=== PATIENT | male | born 1960 | race Caucasian/White ===

== ENCOUNTER 2018-04-02 14:13 | Emergency (ER) | payer MEDICAID ==
[2018-04-02] MEDS ORDERED: FENTANYL PF 100MCG/2ML VIAL IVP ONE ×4 (14:16→14:39)
[2018-04-02] MEDS ORDERED: 0.9 % SODIUM CHLORIDE 1,000 ML BAG IV ONE (14:16)
--- NOTE | 2018-04-02 14:23 | Emergency Department Record ---
History of Present Illness - General Chief Complaint: Fall Injury Stated Complaint: FELL OF LADDER Time Seen by Provider: 04/02/18 14:14 Source: Patient Mode of Arrival: Ambulatory Limitations: No limitations - History of Present Illness Initial Comments: 58 yo male presents after a 8-10 foot fall. He was cleaning his gutters up on a ladder. He injured is chest, side, left arm. He denies a head injury. No current blood thinners. He drove himself to the ED. Ne denies any LOC. MD Complaint: Fall -: Minutes(s) Fall From: Standing, Other (Ladder) When Fall Occurred: Just prior to arrival Fall Witnessed: No Place Fall Occurred: Home Loss of Consciousness: None Prolonged Down Time?: No Symptoms Prior to Fall: None Location: Chest, Back, Abdomen Location - Extremities: Left: Forearm Severity: Severe Quality: Aching Associated Symptoms: Denies - Reeders Coma Scale Eye Response: (4) Open spontaneously Motor Response: (6) Obeys commands Verbal Response: (5) Oriented Dave Total: 15 Review of Systems Constitutional: Denies: Chills, Fever, Malaise, Weakness Eyes: Denies: Eye discharge ENT: Denies: Congestion, Throat pain Respiratory: Denies: Cough Cardiovascular: Denies: Chest pain, Palpitations, Syncope Endocrine: Denies: Fatigue Gastrointestinal: Denies: Abdominal pain, Diarrhea, Nausea, Vomiting Genitourinary: Denies: Dysuria, Frequency, Hematuria Musculoskeletal: Reports: Arthralgia, Back pain, Joint swelling, Myalgia Skin: Denies: Bruising, Change in color, Rash Neurological: Denies: Confusion, Headache, Weakness Psychiatric: Denies: Anxiety Hematological/Lymphatic: Denies: Blood Clots, Easy bleeding, Easy bruising Physical Exam - General General Appearance: Alert, Oriented x3, Cooperative, Anxious Limitations: No limitations - Head Head exam: Atraumatic, Normocephalic, Normal inspection - Eye Eye exam: Normal appearance, PERRL. negative: Conjunctival injection - ENT ENT exam: Normal exam, Mucous membranes moist Ear exam: Normal external inspection Nasal Exam: Normal inspection Mouth exam: Normal external inspection - Neck Neck exam: Normal inspection - Respiratory Respiratory exam: Normal lung sounds bilaterally, Chest wall tenderness (ribs on left mid to lower). negative: Respiratory distress - Cardiovascular Cardiovascular Exam: Regular rate, Normal rhythm, Normal heart sounds Peripheral Pulses: 2+: Radial (L) - GI/Abdominal GI/Abdominal exam: Soft, Tenderness (left side of the abdomen). negative: Distended, Guarding - Rectal Rectal exam: Deferred - exam: Deferred - Extremities Extremities exam: Joint swelling, Normal capillary refill, Tenderness, Other ( superficial abrasion of the left forearm). negative: Normal inspection Image of Full Body: 1 - abrassion, tenderness, swelling 2 - tenderness 3 - tenderness to mid lateral ribs 4 - swollen tender anterior, medial knee - Back Back exam: Reports: CVA tenderness (L), Paraspinal tenderness, Tenderness - Neurological Neurological exam: Abnormal gait (limping), Alert, Oriented X3. negative: Motor sensory deficit - Psychiatric Psychiatric exam: Anxious - Skin Skin exam: Dry, Intact, Normal color, Warm Type of lesion: abrasion Course - Reevaluation(s) Reevaluation #1: The labs were reviewed No acute abnormalities. The forearm XR was reviewed. Distal 1/3 displaced transverse ulnar fracture, impaction fracture distal radius, triquetral bone possible fracture. Head CT Scan: Ethmoid sinus disease Cervical CT Scan: Degenerative changes C4-5, no fracture Chest CT Scan: Fibrotic changes, no fracture seen Abdomen/PElvici CT: Inflammatory changes of the left inguinal region 04/02/18 15:25 [facility] Tra[facility] called given his injuries. 04/02/18 15:59 04/02/18 16:31 No call back from Trauma at this time Dr Jiang of the ED accepts the patient for transfer ED to ED 04/02/18 16:31 04/02/18 16:47 Right Knee XR read STS otherwise negative EMS is ED for transfer. Greatly improved at transfer. Medical Decision Making - Lab Data Result diagrams: 04/02/18 14:20 04/02/18 14:20 Disposition Disposition: Transfer Clinical Impression: Fall, Contusion, chest wall, Contusion of knee, right, Pelvic contusion Ulnar shaft fracture Qualifiers: Encounter type: initial encounter Disposition: Acute Care Hospital Transfer Transfer To: [facility] Reason For Transfer: Trauma, forearm fracture Accepting Physician: Yaney Time Discussed w/Accepting Physician: 15:42 Condition: (2) Stable Forms: Patient Portal Access Time of Disposition: 15:32 Quality - Quality Measures Quality Measures: N/A - Blood Pressure Screening Does Patient Have Any of the Following: No Blood Pressure Classification: Hypertensive Reading Systolic Measurement: 142 Diastolic Measurement: 125 Screening for High Blood Pressure: < Pre-Hypertensive BP, F/U Documented > [ [id number]] Pre-Hypertensive Follow-up Interventions: Referral to alternative/primary care provider.
[2018-04-02 14:27] LABS: HEMATOCRIT 48.6 % (42.0-52.0); HEMOGLOBIN 16.4 gm/dl (14.0-18.0); MEAN CELL VOLUME 90.3 fl (81-97); MEAN CORPUSCULAR HEMOGLOBIN 30.5 pg (27-33); MEAN CORPUSCULAR HGB CONC 33.7 g/dl (32-36); MEAN PLATELET VOLUME 9.4 fl (7.4-10.4); PLATELET COUNT 365 K/uL (130-400); RED BLOOD COUNT 5.38 M/uL (4.40-5.70); RED CELL DISTRIBUTION WIDTH 14.4 % (11.5-14.5); WHITE BLOOD COUNT W/O DIFF 13.8 K/uL (4.2-12.2)
[2018-04-02 14:41] LABS: PROTHROMBIN TIME (PATIENT) 10.2 SECONDS (9.5-12.1)
[2018-04-02 14:42] LABS: BLOOD UREA NITROGEN 13 mg/dL (6-20); CREATININE 1.1 mg/dL (0.7-1.2); EST GLOMERULAR FILTRATION RATE > 60 mL/min; TOTAL PROTEIN 6.9 g/dL (6.6-8.7)
[2018-04-02 14:44] LABS: GLUCOSE,RANDOM 108 mg/dL (74-109)
[2018-04-02 14:47] LABS: ALB/GLOB RATIO 1.3 (1.1-1.8); ALBUMIN 3.9 g/dL (4.0-5.0); ALKALINE PHOSPHATASE 71 U/L (40-129); ALT/SGPT 17 U/L (<41); AST/SGOT 20 U/L (10.0-50.0)
[2018-04-02] MEDS ORDERED: MORPHINE SULFATE 10 MG/ML VIAL IVP ONE ×2 (15:22→16:17)
[2018-04-02 15:31] LABS: ABO GROUP O; ANTIBODY SCREEN NEGATIVE (NEGATIVE); RH TYPE POSITIVE
--- NOTE | 2018-04-03 10:02 | CT SCAN REPORT ---
DATE: 04/02/2018. EXAM: CT OF THE BRAIN WITHOUT CONTRAST. HISTORY: INJURY. TECHNIQUE: Sequential axial images were obtained from the foramen magna through the vertex without contrast administration. FINDINGS: Brain volume is normal. No large territorial infarction, mass effect , or midline shift. No extra-axial fluid collection. The orbits, paranasal sinuses, and mastoid air cells are normal. There is minimal ethmoid sinus disease. No depressed fracture deformity. IMPRESSION: 1. MINIMAL ETHMOID SINUS DISEASE. 2. NO ACUTE INTRACRANIAL ABNORMALITY. [facility]: [id number] [facility]
--- NOTE | 2018-04-03 10:12 | CT SCAN REPORT ---
DATE: 04/02/2018. EXAM: CT OF THE CERVICAL SPINE. HISTORY: FALL OFF LADDER. TECHNIQUE: Sequential axial images were obtained through the cervical spine without intravenous contrast administration. Sagittal and coronal reformatted images were performed. FINDINGS: There is normal vertebral height and alignment. No evidence of fracture, subluxation, or hypertrophy facet. Mild disc spur complex at the C5- 6 and C6-7 levels. IMPRESSION: 1. NO EVIDENCE OF FRACTURE, SUBLUXATION, OR HYPERTROPHY FACET. 2. MILD DEGENERATIVE CHANGE AT C5-6. JOB NUMBER: [id number] [facility]
--- NOTE | 2018-04-03 10:17 | RADIOLOGY REPORT ---
DATE: 04/02/2018. EXAM: LEFT FOREARM. HISTORY: INJURY. TECHNIQUE: Two views of the left forearm were performed. FINDINGS: There is a transverse fracture deformity of the distal third of the ulna. There is an impaction fracture deformity of the distal left radius with no significant angulation. There is likely a triquetral fracture present as well. IMPRESSION: 1. IMPACTION-TYPE FRACTURE DEFORMITY OF THE DISTAL LEFT RADIUS WITH NO SIGNIFICANT ANGULATION. 2. TRANSVERSE FRACTURE DEFORMITY OF THE DISTAL THIRD OF THE ULNA. 3. PROBABLE AVULSION FRACTURE DEFORMITY OF THE TRIQUETRAL BONE. J[facility]BER: [id number] [facility]
--- NOTE | 2018-04-03 10:21 | CT SCAN REPORT ---
DATE: 04/02/2018. EXAM: CT OF THE CHEST WITH CONTRAST. HISTORY: FALL. TECHNIQUE: Sequential axial images were obtained from the thoracic inlet through the bilateral adrenal glands after the intravenous administration of 100 mL of Omnipaque 300 contrast material. Sagittal and coronal reformatted images were performed. FINDINGS: The heart and pericardium appear normal. No mediastinal or hilar lymphadenopathy. The thoracic aorta appears normal. There is mild fibrotic change in the lung bases. No infiltrate or pleural effusion. No compression fracture deformity. No rib fracture deformity. IMPRESSION: 1. NO INTRATHORACIC DISEASE PROCESS. 2. MILD FIBROTIC CHANGE IN THE LUNG BASES. 3. NO RIB FRACTURE DEFORMITY. JOB NUMBER: [id number] [facility]
--- NOTE | 2018-04-03 10:25 | CT SCAN REPORT ---
DATE: 04/02/2018. EXAM: CT OF THE ABDOMEN AND PELVIS WITH CONTRAST. HISTORY: FALL. TECHNIQUE: Sequential axial images were obtained from the diaphragms through the ischiorectal fossa after the intravenous administration of 100 mL of Omnipaque 300 contrast material. Sagittal reformatted images were performed. FINDINGS: The lumbar spine appears normal. IMPRESSION: 1. NO ACUTE ABDOMINAL OR PELVIS DISEASE PROCESSES APPRECIATED. 2. MINIMAL INFLAMMATORY CHANGE IN THE LEFT GROIN REGION. JOB NUMBER: [id number] [facility]
--- NOTE | 2018-04-03 12:16 | RADIOLOGY REPORT ---
DATE: 04/02/2018. EXAM: RIGHT KNEE RADIOGRAPH. HISTORY: FALL WITH KNEE SWELLING. TECHNIQUE: Two views of the right knee. COMPARISON: None. FINDINGS: Suggestion of focal soft tissue swelling near the medial supracondylar aspect of the knee. No definite definable knee joint effusion. No acute fracture is visualized. No evidence of dislocation. Mildly narrowed appearance of the medial tibiofemoral joint space. Otherwise no significant degenerative findings. IMPRESSION: ABOVE. [facility] [id number] [facility]
== END 2018-04-02 16:45 | disposition short-term general hospital (02) ==
LOC: ER 14:13
DX: S52.592A Other fractures of lower end of left radius, initial encounter for closed fracture (principal); S52.692A Other fracture of lower end of left ulna, initial encounter for closed fracture; S20.212A Contusion of left front wall of thorax, initial encounter; S80.01XA Contusion of right knee, initial encounter; S30.0XXA Contusion of lower back and pelvis, initial encounter; R10.32 Left lower quadrant pain; R07.81 Pleurodynia; W11.XXXA Fall on and from ladder, initial encounter; Y93.H9 Activity, other involving exterior property and land maintenance, building and construction; Y92.007 Garden or yard of unspecified non-institutional (private) residence as the place of occurrence of the external cause
CPT/HCPCS: 29125; 99285 ×2; 96376; 96374; 96375; 83605; 85730; 85610; 80053; 85027; 86900; 86901; 86850; 73090; 73560; 72125; 71260; 70450; 74177; G0480; Q9967; J3010; J2270; 80320; J7030